=== PATIENT | male | born 1980 | race Caucasian/White ===

== ENCOUNTER 2016-12-28 16:37 | Emergency (ER) | payer SELFPAY ==
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
== END 2016-12-28 17:49 | disposition home or self-care (01) ==
LOC: ER 16:37
PROC: 0HQLXZZ Repair Left Lower Leg Skin, External Approach (ICD-10-PCS; principal; 2016-12-28)
DX: S81.812A Laceration without foreign body, left lower leg, initial encounter (principal); Z88.0 Allergy status to penicillin; Z23 Encounter for immunization; W26.8XXA Contact with other sharp object(s), not elsewhere classified, initial encounter; Y93.I9 Activity, other involving external motion; Y99.8 Other external cause status